=== PATIENT | female | born 1925 | race Caucasian/White ===

== ENCOUNTER 2016-10-29 21:31 | Emergency (ER) | payer OTHER, MEDICARE ==
--- NOTE | 2016-10-29 22:46 | ER Document Report ---
ED Medical Screen (RME) - General Stated Complaint: SEVERE HEADACHE WITH VISION PROBLEMS Time seen by provider: 22:41 Mode of Arrival: Wheelchair Information source: Patient Notes: 89-year-old female presents to ED for headache started this morning. She states the headache is been off and on throughout the day. Blurred vision started yesterday. Denies nausea and vomiting. Neuro checks her negative. Discussed assessment with Dr. Narayanan will get a head CT for her headache. I have greeted and performed a rapid initial assessment of this patient. A comprehensive ED assessment and evaluation of the patient, analysis of test results and completion of medical decision making process will be conducted by an additional ED providers.
[2016-10-29] MEDS ORDERED: NICARDIPINE 20 MG/200 ML PREMIX BAG IV ONE (23:13)
[2016-10-29] MEDS ORDERED: MORPHINE SULFATE 10 MG/ML INJ IV ONE (23:20)
--- NOTE | 2016-10-29 23:23 | ER Document Report ---
ED Headache - General Chief Complaint: Headache, visual problem Stated Complaint: SEVERE HEADACHE WITH VISION PROBLEMS Time seen by provider: 23:20 Mode of Arrival: Wheelchair Information source: Patient TRAVEL OUTSIDE OF THE [place] IN LAST 30 DAYS: No - HPI Patient complains to provider of: Headache Onset: This morning Onset was: Gradual Timing: Worse Quality of pain: Pressure Severity: Severe Pain Level: 5 Associated symptoms: Double/blurred vision Similar symptoms previously: No Recently seen / treated by doctor: No Notes: Patient is an 89-year-old female with a history of hypertension and high cholesterol who presents to the emergency room complaining of severe headache that started it o'clock in the morning, she reports some blurred vision associated with it but denies nausea or vomiting, no head injury, no fever or chills, no chest pain or shortness of breath, patient denies a history of migraine headaches or similar headaches in the past - Related Data Allergies/Adverse Reactions: codeine Allergy (Verified 10/29/16 22:47) Past Medical History - General Information source: Patient - Social History Smoking Status: Unknown if Ever Smoked Family History: Reviewed & Not Pertinent Renal/ Medical History: Denies: Hx Peritoneal Dialysis Review of Systems - Review of Systems Constitutional: No symptoms reported EENT: Blurred vision Cardiovascular: No symptoms reported Respiratory: No symptoms reported Gastrointestinal: No symptoms reported Genitourinary: No symptoms reported Female Genitourinary: No symptoms reported Musculoskeletal: No symptoms reported Skin: No symptoms reported Hematologic/Lymphatic: No symptoms reported Neurological/Psychological: Headaches -: Yes All other systems reviewed and negative Physical Exam - Vital signs Vitals: Temp Pulse Resp BP Pulse Ox 97.9 F 69 20 145/71 H 100 10/29/16 21:50 10/29/16 21:50 10/29/16 21:50 10/29/16 21:50 10/29/16 21:50 Interpretation: Hypertensive - General General appearance: Alert In distress: Moderate - Appears in pain - HEENT Head: Normocephalic, Atraumatic Eyes: Normal Conjunctiva: Normal Extraocular movements intact: Yes Eyelashes: Normal Pupils: PERRL - Respiratory Respiratory status: No respiratory distress Chest status: Nontender Breath sounds: Normal Chest palpation: Normal - Cardiovascular Rhythm: Regular Heart sounds: Normal auscultation Murmur: No - Abdominal Inspection: Normal Distension: No distension Bowel sounds: Normal Tenderness: Nontender Organomegaly: No organomegaly - Back Back: Normal, Nontender - Extremities General upper extremity: Normal inspection, Nontender, Normal color, Normal ROM , Normal temperature General lower extremity: Normal inspection, Nontender, Normal color, Normal ROM , Normal temperature, Normal weight bearing. No: Jillian's sign - Neurological Neuro grossly intact: Yes Cognition: Normal Orientation: AAOx4 [place] Coma Scale Eye Opening: Spontaneous [place] Coma Scale Verbal: Oriented [place] Coma Scale Motor: Obeys Commands [place] Coma Scale Total: 15 Speech: Normal Motor strength normal: LUE, RUE, LLE, RLE Sensory: Normal - Psychological Associated symptoms: Normal affect, Normal mood - Skin Skin Temperature: Warm Skin Moisture: Dry Skin Color: Normal Course - Re-evaluation Re-evalutation: 10/29/16 23:22 A call was placed to [facility], patient was discussed with [facility] in the transfer center and transfer was requested, awaiting callback from accepting physician 10/29/16 23:30 Callback from [facility] with neurosurgical PA, Bart Suazo, states that patient's with this type of bleed generally go to director of rehabilitative services service with neurology consult, but they will be on consult if needed 10/29/16 23:41 Patient was discussed with director of rehabilitative services, Dr. Lang Ashley who graciously accepts patient for transfer, transfer center reports that they do have available beds at this point time once one is assigned they will call back and transport arrangements will be made - Vital Signs Vital signs: Temp Pulse Resp BP Pulse Ox 97.9 F 69 14 124/68 97 10/29/16 21:50 10/29/16 21:50 10/30/16 01:10 10/30/16 01:25 10/30/16 01:25 - Laboratory Result Diagrams: 10/29/16 23:30 10/30/16 00:15 Laboratory results interpreted by me: 10/30/16 00:15 AST 63 H - Diagnostic Test Radiology reviewed: Image reviewed, Reports reviewed - EKG Interpretation by Me EKG shows normal: Sinus rhythm Rate: Normal Rhythm: NSR Critical Care Note - Critical Care Note Total time excluding time spent on procedures (mins): 45 Comments: Patient with hypertensive intracranial bleed, requiring Cardene drip, discussion with patient and family regarding diagnosis and prognosis, consultation with the neurosurgical services and arranging for transfer for of care to tertiary care center Discharge - Discharge Clinical Impression: Intracranial bleed Condition: Serious Disposition: [facility] Referrals: ELAINE BERNARDO MD [Primary Care Provider] - Follow up as needed
--- NOTE | 2016-10-29 23:30 | EKG REPORT ---
SEVERITY:- NORMAL ECG - SINUS RHYTHM : Confirmed by: Elizabeth Thornton 29-Oct-2016 23:29:49
[2016-10-29] MEDS ORDERED: NICARDIPINE HCL RTU, ISO-OS 200 ML IV PRN (23:45)
[2016-10-29 23:49] LABS: ABSOLUTE BASOPHILS # (AUTO) 0.1 10^3/uL (0.0-0.2); ABSOLUTE EOSINOPHILS # (AUTO) 0.2 10^3/uL (0.0-0.6); ABSOLUTE LYMPHOCYTES (AUTO) 2.3 10^3/uL (0.5-4.7); ABSOLUTE NEUT (AUTO) 5.2 10^3/uL (1.7-8.2); BASOPHILS % (AUTO) 0.8 % (0-2); EOSINOPHILS % (AUTO) 2.7 % (0-6); HEMATOCRIT 39.8 % (36.0-47.0); HEMOGLOBIN 13.4 g/dL (12.0-15.5); HGB HCT DIFFERENCE 0.4; LYMPHOCYTES % (AUTO) 26.1 % (13-45); MEAN CORPUSCULAR HEMOGLOBIN 31.9 pg (27.0-33.4); MEAN CORPUSCULAR HGB CONC 33.7 g/dL (32.0-36.0); MEAN CORPUSCULAR VOLUME 95 fl (80-97); RED BLOOD COUNT 4.19 10^6/uL (3.72-5.28); RED CELL DISTRIBUTION WIDTH 13.9 % (11.5-14.0); SEGMENTED NEUTROPHILS % (AUTO) 59.4 % (42-78); WHITE BLOOD COUNT 8.7 10^3/uL (4.0-10.5)
[2016-10-30 00:16] LABS: PROTHROMBIN TIME 12.5 SEC (11.4-15.4)
[2016-10-30 00:50] LABS: ALANINE AMINOTRANSFERASE 25 U/L (9-52); ALBUMIN 4.2 g/dL (3.5-5.0); ALKALINE PHOSPHATASE 72 U/L (38-126); ANION GAP 8 (5-19); ASPARTATE AMINO TRANSFERASE 63 U/L (14-36); BILIRUBIN,DIRECT 0.2 mg/dL (0.0-0.4); BILIRUBIN,TOTAL 0.7 mg/dL (0.2-1.3); BLOOD UREA NITROGEN 20 mg/dL (7-20); CALCIUM 9.8 mg/dL (8.4-10.2); CARBON DIOXIDE 29 mmol/L (22-30); CHLORIDE 105 mmol/L (98-107); CREATININE RESULT 0.73 mg/dL (0.52-1.25); GLUCOSE 101 mg/dL (75-110); POTASSIUM 4.4 mmol/L (3.6-5.0); SODIUM 142.1 mmol/L (137-145); TOTAL PROTEIN 7.3 g/dL (6.3-8.2)
[2016-10-30 01:23] VITALS: BP 124/68
== END 2016-10-30 01:23 | disposition short-term general hospital (02) ==
LOC: ER 21:31
DX: I61.9 Nontraumatic intracerebral hemorrhage, unspecified (principal); R51 Headache; I10 Essential (primary) hypertension; E78.00 Pure hypercholesterolemia, unspecified
CPT/HCPCS: 93005; 99291; 96375; 96365; 36415; 85025; 85610; 85730; 80053; 70450; 93010; J2270; J3490